=== PATIENT | male | born 1975 | race Caucasian/White ===

== ENCOUNTER 2017-02-23 11:39 | Emergency (ER) | payer BC ==
[2017-02-23 11:48] VITALS: BP 151/90; PULSE 89; RESP 16; TEMP 98.7; O2SAT 98
--- NOTE | 2017-02-23 11:53 | ED PDOC ---
Arrival/HPI - General Chief Complaint: Abnormal Skin Integrity Time Seen by Provider: 02/23/17 11:43 Historian: Patient - History of Present Illness Narrative History of Present Illness (Text): 02/23/17 11:49 41yr old male presents today with laceration to the right fifth finger status post injury. Patient states he was using a mandolin and his hand slipped and he cut his finger on the blade. Patient denies fevers or chills. States incident occurred prior to arrival. Patient states he is having lots of bleeding to the site. Denies numbness or tingling. No other complaints Time/Duration: Prior to Arrival Symptom Onset: Sudden Symptom Course: Unchanged Quality: Aching Severity Level: 1 Past Medical History - Provider Review Nursing Documentation Reviewed: Yes - Travel History Have you recently traveled outside [place] w/in the past 3 mons?: No - Cardiac Hx Cardiac Disorders: No - Pulmonary Hx Respiratory Disorders: No - Neurological Hx Seizures: Yes - HEENT Hx Blind: No - Renal Hx Renal Disorder: No - Endocrine/Metabolic Hx Endocrine Disorders: No - Hematological/Oncological Hx Blood Disorders: No - Integumentary Hx Dermatological Disorder: No - Musculoskeletal/Rheumatological Hx Musculoskeletal Disorders: No - Gastrointestinal Hx Gastrointestinal Disorders: No - Genitourinary/Gynecological Hx Genitourinary Disorders: No - Psychiatric Hx Psychophysiologic Disorder: No Hx Substance Use: No Family/Social History - Physician Review Nursing Documentation Reviewed: Yes Family/Social History: Unknown Family HX Smoking Status: Current Some Days Smoker Hx Alcohol Use: Yes Frequency of alcohol use: Socially Hx Substance Use: No Allergies/Home Meds Allergies/Adverse Reactions: Allergies No Known Allergies Allergy (Verified 02/23/17 11:44) Review of Systems - Review of Systems Constitutional: absent: Fatigue, Fevers Respiratory: absent: SOB, Cough Cardiovascular: absent: Chest Pain, Palpitations Gastrointestinal: absent: Abdominal Pain, Nausea, Vomiting Musculoskeletal: Arthralgias Skin: Laceration Neurological: absent: Headache, Dizziness Physical Exam Vital Signs Reviewed: Yes Vital Signs Temp Pulse Resp BP Pulse Ox 02/23/17 11:44 98.7 F 89 16 151/90 H 98 Temperature: Afebrile Blood Pressure: Hypertensive Pulse: Regular Respiratory Rate: Normal Appearance: Positive for: Well-Appearing, Non-Toxic, Comfortable Pain Distress: None Mental Status: Positive for: Alert and Oriented X 3 - Systems Exam Head: Present: Atraumatic Mouth: Present: Moist Mucous Membranes Respiratory/Chest: Present: Clear to Auscultation Cardiovascular: Present: Regular Rate and Rhythm Upper Extremity: Present: Normal ROM, NORMAL PULSES, Tenderness (Right fifth finger: There is a superficial skin avulsion along the ulnar aspect of the distal tip of the right fifth finger. minimal bleeding noted. ), Neurovascularly Intact, Capillary Refill < 2s, Other. No: Swelling, Erythema, Deformity Neurological: Present: GCS=15, Speech Normal Skin: Present: Warm, Dry, Normal Color. No: Rashes Psychiatric: Present: Alert, Oriented x 3 Medical Decision Making ED Course and Treatment: 02/23/17 12:33 Patient is nontoxic well appearing in no distress. Vital signs are stable. Wound irrigated well with high pressure irrigation Tetanus up to date refused medications for pain pt with superficial skin avulsion to 5th finger (right) gelfoam applied; dressing applied Patient was advised to keep the wound clean and dry, apply bacitracin twice daily. Advised to return immediately if signs of infection develop or return if any other concerning symptoms develop Impression: skin avulsion, finger Motrin every 6 hours as needed for pain Keep the wound clean and dry, apply bacitracin twice daily Return immediately if signs of infection develop: High fevers, increasing pain, redness, swelling, purulent discharge Followup with primary care physician within the next 2 days Return if any other concerning symptoms develop Disposition/Present on Arrival - Present on Arrival Any Indicators Present on Arrival: No History of DVT/PE: No History of Uncontrolled Diabetes: No Urinary Catheter: No History of Decub. Ulcer: No History Surgical Site Infection Following: None - Disposition Have Diagnosis and Disposition been Completed?: Yes Diagnosis: Avulsion of skin of finger Disposition: HOME/ ROUTINE Disposition Time: 11:53 Patient Plan: Discharge Condition: GOOD Discharge Instructions (ExitCare): Skin Avulsion (ED) Additional Instructions: Motrin every 6 hours as needed for pain Keep the wound clean and dry, apply bacitracin twice daily Return immediately if signs of infection develop: High fevers, increasing pain, redness, swelling, purulent discharge Followup with primary care physician within the next 2 days Return if any other concerning symptoms develop Prescriptions: Bacitracin OINT 1 applic TP BID #1 tube Referrals: Emmanuel Nash MD [Staff Provider] - Follow up with primary Forms: WORK NOTE
[2017-02-23] MEDS ORDERED: Absorbable Gelatin Sponge Size 12-7 MM STA (11:55)
[2017-02-23] MEDS ORDERED: TDAP Vaccine 0.5 mL Syr IM ONE (12:03)
== END 2017-02-23 12:35 | disposition home or self-care (01) ==
LOC: ED 11:39
DX: S61.306A Unspecified open wound of right little finger with damage to nail, initial encounter (principal); W45.8XXA Other foreign body or object entering through skin, initial encounter; F17.210 Nicotine dependence, cigarettes, uncomplicated